=== PATIENT | male | born 1950 | race Two or more races ===

== ENCOUNTER 2017-02-16 15:58 | Emergency (ER) | payer OTHER, MEDICAID ==
[2017-02-16 16:12] VITALS: BP 131/89; PULSE 77; RESP 16; O2SAT 99
--- NOTE | 2017-02-16 16:20 | EDPHY ---
H & P Smoking Status: Former smoker Time Seen by Provider: 02/16/17 16:03 HPI/ROS: CHIEF COMPLAINT: Sent for abnormal chest x-ray HISTORY OF PRESENT ILLNESS: 66-year-old male presents to the emergency department by ambulance with an abnormal chest x-ray. The patient has been residing at [facility] for the last 5 months. He has been recovering from congestive heart failure. He is on continuous oxygen. He states "I was just sitting there watching TV and they did an x-ray and now I am here." Patient is a chronic smoker. He he states he has a chronic cough although denies hemoptysis. Denies any change in his cough. No fevers or chills. Specifically no night sweats. No recent travel. No known ill contacts. He denies new shortness of breath. He states that he does have umbilical hernia that he has had for the last several months and he is requesting to see a surgeon about this. No vomiting. No post-tussive vomiting. REVIEW OF SYSTEMS: Constitutional: No fever, no chills. Eyes: No double or blurry vision. ENT: No sore throat. Respiratory: As above. no shortness of breath. Cardiac: No chest pain. Gastrointestinal: No abdominal pain, vomiting or diarrhea. Genitourinary: No dysuria. Musculoskeletal: No neck or back pain. Skin: No rashes. Neurological: No headache. (Dori Currie) Past Medical/Surgical History: Myocardial infarction, implantable defibrillator, congestive heart failure August of 2016, umbilical hernia, hypertension, atrial fibrillation, anemia, anxiety, insomnia (Dori Currie) Social History: Currently residing at [facility] for the last 5 months (Dori Currie) Physical Exam: General Appearance: Alert, no distress. 97% on 2 L of nasal cannula oxygen. No respiratory distress. No cough. Eyes: Pupils equal and round. Extraocular motions are all intact. ENT: Mouth: Mucous membranes moist. Respiratory: No wheezing, rhonchi, or rales, lungs are clear to auscultation. Cardiovascular: Regular rate and rhythm. Gastrointestinal: Abdomen is soft and nontender, no masses, no rebound or guarding, bowel sounds normal. Umbilical hernia present that is easily compressible. No signs of incarcerated hernia. Neurological: Alert and oriented x 3, cranial nerves II through XII grossly intact Skin: Warm and dry, no rashes. Musculoskeletal: Nontender to palpate along the cervical, thoracic or lumbar spine. Neck is supple. Extremities: Full range of motion and no peripheral edema. Psychiatric: Patient is oriented X 3, there is no agitation. (Dori Currie) Constitutional: Initial Vital Signs Heart Rate 77 02/16/17 16:08 Respiratory Rate 16 02/16/17 16:08 Blood Pressure 131/89 H 02/16/17 16:08 O2 Sat (%) 99 02/16/17 16:08 O2 Delivery Mode Room Air Allergies/Adverse Reactions: acetaminophen [From Tylenol] Allergy (Unknown, Verified 08/29/15 14:10) RASH/VOMITING blueberry Allergy (Verified 08/29/15 14:10) lisinopril Allergy (Verified 08/29/15 14:10) Rash raspberry Allergy (Verified 08/29/15 14:10) rivaroxaban [From Xarelto] Allergy (Verified 08/29/15 14:10) Rash Tetanus Vaccines and Toxoid [Tetanus Vaccines & Toxoid] Allergy (Verified 14:10) BLACKBERRY Allergy (Uncoded 08/29/15 14:10) Home Medications: Medication Instructions Recorded Apixaban [Eliquis] 5 mg PO BID 08/09/15 Cyclobenzaprine [Flexeril 10 MG 10 mg PO TID 08/09/15 (*)] Nitroglycerin [Nitrostat 0.4 mg 0.4 mg SL PRN PRN 08/09/15 (*)] Tiotropium Inhaler [Spiriva 18 mcg IH DAILY 08/09/15 Handihaler] Zolpidem Tartrate [Ambien 5MG (*)] 5 mg PO HS PRN 08/09/15 oxyCODONE IR [Oxycodone Ir (*)] 5 mg PO Q6 PRN 08/09/15 Benzonatate [Tessalon Pearles] 100 mg PO TID #90 cap 08/12/15 Carvedilol [Coreg (*)] 6.25 mg PO BIDMEAL #60 tab 08/12/15 Losartan Potassium [Cozaar 25 mg 25 mg PO DAILY@1200 #30 tab 08/12/15 (*)] Spironolactone [Aldactone 25 MG 25 mg PO DAILY #30 tab 08/12/15 (*)] Torsemide [Demadex] 40 mg PO DAILY16 #60 tab 08/12/15 Torsemide [Demadex] 60 mg PO DAILY #90 tab 08/12/15 Baclofen [Baclofen 10 mg (RX)] 10 - 20 mg PO TID PRN #30 tab 08/29/15 Medical Decision Making - Diagnostics Imaging: I viewed and interpreted images myself - Diagnostics Imaging Results: Imaging Impressions Chest X-Ray 02/16/17 16:15 Impression: Stable chest. Underlying interstitial lung disease. Chronic cardiomegaly. Pacemaker/defibrillator, unchanged.. ED Course/Re-evaluation: 66-year-old male presents to the emergency department by ambulance with no complaints. He was found to have an abnormal chest x-ray today done at [facility]. This x-rays not readily available to me and therefore this will be repeated in the emergency department. The patient was told that he had possible "TB" on chest x-ray. Chest x-ray was compared with previous chest x-ray from August of 2016 and was stable. No signs of tuberculosis. I doubt this patient has tuberculosis. Has a chronic cough which she associates with smoking. He had no night sweats. Specifically no hemoptysis. I have discussed this with Kristel, nurse at [facility], who agrees the patient is welcome back [facility]. Patient also has umbilical hernia which is not incarcerated. He requested general surgeon referral. (Dori Currie) Differential Diagnosis: Including but not limited to viral upper respiratory infection or chronic bronchitis, congestive heart failure, tuberculosis, pneumonia (Dori Currie) Departure - Departure Disposition: Home, Routine, Self-Care Clinical Impression: Chronic cough Umbilical hernia Qualifiers: Obstruction and gangrene presence: without obstruction or gangrene Qualified Code(s): K42.9 - Umbilical hernia without obstruction or gangrene Condition: Good Instructions: Umbilical Hernia (ED), Chronic Cough (ED) Additional Instructions: You have no evidence of tuberculosis on chest xray. Your Chest Xray is stable and unchanged from 08/28. Referrals: Natalie Wilson MD [Medical Doctor] - 2-3 days, call for appt. (General surgeon on-call)
== END 2017-02-16 18:12 | disposition home or self-care (01) ==
LOC: EDUNIT#
DX: R05 Cough (principal); K42.9 Umbilical hernia without obstruction or gangrene; I25.2 Old myocardial infarction; I11.0 Hypertensive heart disease with heart failure; I50.9 Heart failure, unspecified; Z87.891 Personal history of nicotine dependence

== ENCOUNTER 2017-03-15 07:30 | Day surgery (SDC) | payer OTHER, MEDICAID ==
[2017-03-15] MEDS ORDERED: NS 1,000 ML IV ONE (07:33)
[2017-03-15] MEDS ORDERED: ceFAZolin 2 GM/DEXTROSE 100 ML IV ONE (07:33)
[2017-03-15] MEDS ORDERED: DIAZEPAM 5 MG TAB PO ONE (07:33)
[2017-03-15] MEDS ORDERED: diphenhydrAMINE 25 MG CAP PO ONE (07:33)
[2017-03-15] MEDS ORDERED: BACITRACIN IRRIGATION/NS 50,000 UNITS/1,000 ML BTL IRR ONE (07:33)
--- NOTE | 2017-03-15 08:14 | CPEKG ---
Heart Rate: 79 RR Interval: 759 P-R Interval: 112 QRSD Interval: 212 QT Interval: 472 QTC Interval: 542 P [place]: 0 QRS [place]: 0 T Wave [place]: 118 EKG Severity - ABNORMAL ECG - EKG Impression: ATRIAL TACHYCARDIA WITH 2:1 VENTRICULAR PACING. V PACING APPEARS TO BE EKG Impression: PSEUDOFUSION Electronically Signed By: Wilberto Reyes 15-Mar-2017 19:00:35
[2017-03-15 08:30] LABS: % IMMATURE GRANULYOCYTES 0.3 % (0.0-1.1); ABSOLUTE IMMATURE GRANULOCYTES 0.03 10^3/uL (0.00-0.10); ADD DIFF? NO; ADD MORPH? NO; ADD SCAN? NO; ATYPICAL LYMPHOCYTE FLAG 20 (0-99); FRAGMENT RBC FLAG 0 (0-99); HEMATOCRIT 51.6 % (40.0-51.0); HEMOGLOBIN 17.2 g/dL (13.7-17.5); LEFT SHIFT FLG 0 (0-99); LIPEMIA HEMOLYSIS FLAG 80 (0-99); MEAN CELL HEMOGLOBIN 31.4 pg (27.9-34.1); MEAN CELL HEMOGLOBIN CONCENTR. 33.3 g/dL (32.4-36.7); MEAN CELL VOLUME 94.3 fL (81.5-99.8); MEAN PLATELET VOLUME 10.4 fL (8.7-11.7); PLATELET CLUMPS FLAG 10 (0-99); PLATELET COUNT 185 10^3/uL (150-400); RED BLOOD CELL COUNT 5.47 10^6/uL (4.40-6.38); RED CELL DISTRIBUTION WIDTH 15.6 % (11.5-15.2)
[2017-03-15 08:43] LABS: INR 1.12 (0.83-1.16); PROTIME(PATIENT) 14.3 SEC (12.0-15.0)
[2017-03-15 08:47] LABS: ANION GAP 11 mEq/L (8-16); CALCIUM 9.4 mg/dL (8.5-10.4); CARBON DIOXIDE 24 mEq/l (22-31); CHLORIDE 107 mEq/L (97-110); GLOMERULAR FILTRATION RATE > 60; GLUCOSE 84 mg/dL (70-100); POTASSIUM 4.1 mEq/L (3.5-5.2); SODIUM 142 mEq/L (134-144)
--- NOTE | 2017-03-15 08:55 | PDGENHP ---
History and Physical History and Physical: No changes to patient status. Limited echocardiogram was performed to have some idea on heart function (this was to have been performed some time ago, but the patient had not been able to get in to have procedure completed). Echocardiogram with LVEF at 10-15% (about double what was noted with the last echo) Patient is not taking any medications.
[2017-03-15] MEDS ORDERED: PROPOFOL 200 MG/20 ML VIAL ONE (09:19)
[2017-03-15] MEDS ORDERED: KETAMINE 100 MG/10 ML SYR ONE (09:21)
[2017-03-15] MEDS ORDERED: DEXMEDETOMIDINE HCL 400 MCG in NS 100 ML IV SCH (09:30)
--- NOTE | 2017-03-15 09:37 | PDANEPAE ---
ANE History of Present Illness h/o ischemic cardiomyopathy requriing ICD presents for generator change. noncompliant with medications; last known EF 8% ANE Past Medical History - Cardiovascular History Hx Hypertension: Yes Hx Arrhythmias: Yes Hx Coronary Artery / Peripheral Vascular Disease: Yes Hx CHF / Valvular Disease: Yes Cardiovascular History Comment: VT X2. STENTS X2. AFIB. DEFIBRILLATOR - Pulmonary History Hx COPD: Yes Hx Asthma/Reactive Airway Disease: No Hx Recent Upper Respiratory Infection: No Hx Oxygen in Use at Home: Yes Hx Sleep Apnea: Yes Pulmonary History Comment: TASH IS [employer] - Neurologic History Hx Cerebrovascular Accident: No Hx Seizures: No Hx Dementia: No - Endocrine History Hx Diabetes: No - Renal History Hx Renal Disorders: No Renal History Comment: DIFFICULTY URINATING CURRENTLY - Liver History Hx Hepatic Disorders: No - Neurological & Psychiatric Hx Hx Neurological and Psychiatric Disorders: No - Cancer History Hx Cancer: No - Congenital Disorder History Hx Congenital Disorders: No - GI History Hx Gastrointestinal Disorders: No - Other Health History Other Health History: NONE - Chronic Pain History Chronic Pain: Yes (FROM COUGHING) - Surgical History Prior Surgeries: HERNIA REPAIR. BILATERAL HIP REPLACEMENTS. CATARACTS BILATERAL 2012. VT X2. STENTS X2. 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: [employer] Date Pacemaker Last Checked: 05/22/14 ANE Patient History - Allergies Allergies/Adverse Reactions: acetaminophen [From Tylenol] Allergy (Unknown, Verified 08/29/15 14:10) RASH/VOMITING blueberry Allergy (Verified 08/29/15 14:10) cefuroxime Allergy (Verified 03/15/17 08:54) doxycycline Allergy (Verified 03/15/17 08:54) lisinopril Allergy (Verified 08/29/15 14:10) Rash raspberry Allergy (Verified 08/29/15 14:10) Tetanus Vaccines and Toxoid [Tetanus Vaccines & Toxoid] Allergy (Verified 14:10) tramadol Allergy (Verified 03/15/17 08:54) BLACKBERRY Allergy (Uncoded 08/29/15 14:10) - Home Medications Home medications: home medication list seen and reviewed Home Medications: Nitroglycerin [Nitrostat 0.4 mg (*)] 0.4 mg SL PRN PRN 08/09/15 [Last Taken Unknown] Albuterol [Proventil Inhaler HFA (*)] 2 puffs IH Q6HRS PRN 03/15/17 [Last Taken Unknown] Docusate Sodium [Colace 100 MG (*)] 100 mg PO Q8HRS PRN 03/15/17 [Last Taken Unknown] Furosemide [Lasix 40 MG (*)] 40 mg PO BID@08,13 03/15/17 [Last Taken 03/12/17 13 :00] Ibuprofen [Motrin (*)] 600 mg PO Q6HRS PRN 03/15/17 [Last Taken 03/06/17 10:14] Losartan Potassium [Cozaar 25 mg (*)] 25 mg PO DAILY 03/15/17 [Last Taken ] Spironolactone [Aldactone 25 MG (*)] 25 mg PO DAILY@17 03/15/17 [Last Taken ] tiZANidine HCL [Zanaflex 2MG (*)] 2 mg PO Q6HRS PRN 03/15/17 [Last Taken ] traZODone [traZODONE 50MG (*)] 50 mg PO HS PRN 03/15/17 [Last Taken 03/06/17] - Anes Hx Anes Hx: no prior problems - Smoking Hx Smoking Status: Former smoker - Family Anes Hx Family Hx Anesthesia Complications: NONE ANE Labs/Vital Signs - Labs Result Diagrams: 03/15/17 08:15 03/15/17 08:15 - Vital Signs Height: 163 cm Weight: 61.2 kg ANE Physical Exam - Airway Neck exam: FROM Mallampati Score: Class 2 Mouth exam: dentures - Pulmonary Pulmonary: no respiratory distress - Cardiovascular Cardiovascular: regular rate and rhythym - ASA Status ASA Status: IV ANE Anesthesia Plan Anesthesia Plan: GA with mask
[2017-03-15] MEDS ORDERED: LIDOCAINE 1% 300 MG/30 ML SDV ONE (09:54)
[2017-03-15] MEDS ORDERED: LIDO/EPI 1% **for epidural** 30 ML SDV ONE (09:54)
[2017-03-15] MEDS ORDERED: BUPIVACAINE 0.5% 30 ML SDV ONE (09:54)
--- NOTE | 2017-03-15 11:08 | SUROPNOTE ---
[facility] Operative Report - Surgery PROCEDURE: GENERATOR CHANGE INDICATION: DORCAS ACHIEVED PROCEDURE DETAILS: After consent was obtained, we opted to have anesthesia assistance for sedation given the patient's LVEF and COPD history. Limited echocardiogram was performed for assessment of LVEF prior to procedure (we had been attempting to get his arranged in the outpatient setting, but transportation was very difficult for the patient. Reassessment by echo with LVEF at 10-15%. Patient was placed on table in usual sterile fashion. Generous lidocaine was used for local to the left subclavian region. An incision (#12 blade) was made over the old pocket, and Bovie was used for depth and width. The old generator was explanted from the pocket, and the leads were one by one interrogated. Implanted device: M#: [id number] ... Itrevia 7 HF-T DF-1 S#: [id number] DDD LR: 80 UR: 130 MSR: 160 AVdelay : 150 RA: 2.0 V @ 0.4 ms with 0.4 mV and 300 ms refract RV 2.4 V @ 0.4 ms with 0.8 mV and 250 ms refract LV: 2.0 @ 0.4 ms with 1.6 mV and 250 ms refract DFT settings: VF detect: >222 VF therapy 245 X1 and 40J X7 VT detect: >167 VT therapy ANDREA X3 24J X1 40J X7 RV lead was linox Smart SD 60/16 S#: [id number] LV lead Corox OTW-S 75-BP S#: [id number] RA lead 4076-45 S#: [id number] Pocket was flushed after old generator was explanted (Lumax 540 HF-T S#: [id number]) New generator was implanted without difficulty, and pocket was closed with 4-0, 3-0, and 2-0 Haemostasis was noted pre new generator implant No complications were appreciated. Patient tolerated the procedure well
[2017-03-15] MEDS ORDERED: PROMETHAZINE HCL 25 MG/ML INJ IVP PRN (11:23)
[2017-03-15] MEDS ORDERED: NALOXONE HCL 0.4 MG/ML INJ IVP PRN (11:23)
[2017-03-15] MEDS ORDERED: fentaNYL 100 MCG/2 ML INJ IVP PRN (11:23)
[2017-03-15] MEDS ORDERED: HYDROmorphONE/DILAUDID 1 MG/ML INJ IVP PRN (11:23)
[2017-03-15] MEDS ORDERED: ALBUTEROL 3 ML DEYVIAL IH PRN (11:23)
[2017-03-15] MEDS ORDERED: ONDANSETRON 4 MG/2 ML VIAL IVP PRN (11:23)
[2017-03-15] MEDS ORDERED: LR 500 ML IV PRN (11:23)
--- NOTE | 2017-03-15 11:23 | POSTANESTH ---
Post Anesthetic Evaluation Cardiovascular Status: Normal, Stable Respiratory Status: Normal, Stable Level of Consciousness/Mental Status: Can Participate in Eval Pain Control: Adequate, Prn Tx Ordered Nausea/Vomiting Control: Adequate, Prn Tx Ordered Complications Possibly Related to Anesthesia: None Noted
--- NOTE | 2017-03-15 15:19 | ECHO ---
[email or web address] [id number] Main: [phone] Fax: Transthoracic Echocardiogram Name: JOSE RAUL TURNER MR#: [id number] Study Date: 03/15/2017 Study Time: 08:39 AM Date of : 1950 Age: 66 year(s) Height: ( ) Weight: ( ) BSA: Gender: Male Examination: Limited Echo Indication: Limited echo to eval LV function Image Quality: Contrast: Requested by: Cornelius Hussein BP: / Heart Rate: Rhythm: Pacemaker rhythm Indication: Limited echo to eval LV function Procedure Staff Animal Husbandry Manager: Becca Ley Physician: Kt Almanzar Requesting Provider: Measurements: Chambers Valvular Assessment AV/MV Valvular Assessment TV/PV Normal Normal Normal Name Value Range Name Value Range Name Value Range LVDd (2D): 6.4 cm (4.2 cm-5.9 TR Vmax: 2.16 mm/s ( - ) cm) TR PGmax: 19 mmHg ( - ) EF Range: 10-15 % syst. PAP: 29 mmHg ( - ) Continued Measurements: Valvular Assessment TV/PV Name Value CVP (est.): 10 mmHg Findings: Left Ventricle: Moderately to severely dilated left ventricle. Severe global hypokinesis. Akinesis of the posterolateral wall. Severely reduced systolic LV function. The ejection fraction is estimated to be 10-15 %. Regional wall motion abnormality noted. (No Signature Object) Patient: JOSE RAUL TURNER Study Date: 03/15/2017 Page 1 of 1 08:39 AM [id number]
[2017-03-15 15:34] VITALS: BP 101/67; RESP 18; O2SAT 95
== END 2017-03-15 15:30 | disposition home or self-care (01) ==
LOC: FCATH 07:30
PROVIDERS: ATTEND Internal Medicine Cardiovascular Disease
PROC: 0JH608Z Insertion of Defibrillator Generator into Chest Subcutaneous Tissue and Fascia, Open Approach (ICD-10-PCS; principal; 2017-03-15)
DX: Z45.018 Encounter for adjustment and management of other part of cardiac pacemaker (principal); I42.9 Cardiomyopathy, unspecified; J44.9 Chronic obstructive pulmonary disease, unspecified; I10 Essential (primary) hypertension; I25.10 Atherosclerotic heart disease of native coronary artery without angina pectoris; E78.5 Hyperlipidemia, unspecified; Z95.5 Presence of coronary angioplasty implant and graft
CPT/HCPCS: C1882; J0690; J2704

== ENCOUNTER 2017-07-02 12:42 | Observation (INO) | payer OTHER, MEDICAID ==
--- NOTE | 2017-07-02 12:53 | CPEKG ---
Heart Rate: 79 RR Interval: 759 P-R Interval: 180 QRSD Interval: 132 QT Interval: 436 QTC Interval: 500 P [place]: -38 QRS [place]: -82 T Wave [place]: 82 EKG Severity - ABNORMAL ECG - EKG Impression: ATRIAL-SENSED VENTRICULAR-PACED RHYTHM Electronically Signed By: Wilberto Reyes 05-Jul-2017 06:08:12
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
[2017-07-02 13:53] LABS: PLATELET COUNT 184 10^3/uL (150-400)
[2017-07-02] MEDS ORDERED: IOPAMIDOL (ISOVUE 370) 100 ML BTL IV ONE (14:14)
[2017-07-02] MEDS ORDERED: ONDANSETRON 4 MG/2 ML VIAL IVP PRN (16:45)
[2017-07-02] MEDS ORDERED: ACETAMINOPHEN 325 MG TAB PO PRN (16:45)
[2017-07-02] MEDS ORDERED: ZOLPIDEM TARTRATE 5 MG TAB PO PRN (16:45)
--- NOTE | 2017-07-02 16:48 | HOSPPROG ---
Hospitalist Progress Note Objective: Vital Signs Temp Pulse Resp BP Pulse Ox 36.9 C 65 17 102/69 95 07/02/17 14:00 07/02/17 14:00 07/02/17 14:00 07/02/17 14:00 07/02/17 14:00 ICD10 Worksheet Patient Problems: Problems Problem Status Onset CAD (coronary artery disease) Acute Ischemic cardiomyopathy Acute Atrial fib/flutter, transient Acute Chronic Disease [facility]Transitional Care Acute Benign localized hyperplasia of prostate with urinary retention Acute Umbilical hernia Acute Chronic cough Acute
--- NOTE | 2017-07-02 16:54 | PDGENHP ---
History and Physical History and Physical: CC: Chest pain and stress HISTORY: This patient lives at [facility] and says that he called the paramedics to come to the ER as for the last 2 days his roommate there has been yelling at him and calling him names and causing him quite a bit of stress make him feel very uncomfortable. This is resulted in loss of appetite with decreased eating and with some episodes of a very sharp very focal pain in the mid sternal area that is not pleuritic necessarily but was associated with some shortness of breath. This type of episode has occurred 3 times over the last 36 hr. He got aspirin on the way here and is being given oxygen here and says that his pain and dyspnea are completely resolved at this point. There has been no nausea, no leg pain or swelling, no palpitations, no orthopnea. He does not recall previous episodes of a pain like he is having today. The patient does have a history of coronary disease with stents as well as a pacemaker. He recalls very clearly that his angina symptom with his previous coronary disease was a left-sided diffuse chest discomfort that felt like someone hit him with a 2 x 4 and was a deep ache, very different than today's focal sharp pain in the mid sternum. 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 I have reviewed the list and ordered appropriate medicines. PHYSICAL EXAMINATION: Vital Signs: Normal blood pressure pulse respirations and temperature is, initial oxygen saturation 87% is up well with 2 L nasal cannula, baseline unknown to me Furnace Stock Inspector: Sinus rhythm with ventricular pacing, normal rate Examination: General: alert, oriented, good mentation, relaxed Skin: warm, dry, good color, no rash HEENT: normal Neck: no mass or jvd Resps: relaxed Lungs: clear breath sounds Heart: regular, no murmur Abdomen: soft, nondistended, nontender, +BS, no mass Upper Extremities: normal Lower Extremities: no edema, warm No Bleeding or bruising Neurologic: normal speech/language, normal community dietitian, no focal weakness IV site: looks normal LABORATORY DATA: Normal troponin BUN slightly high at 31 with normal creatinine, normal electrolytes BNP 2500 with numbers as high as the 6000+ in the [place] [address] RADIOLOGY STUDIES: Chest x-ray two views done in the ER and I compared the images from this study to the images from 3 previous studies over the last few years. This study as well as all the other studies shows diffuse interstitial abnormalities throughout both lungs. There is significant enlargement of the heart without obvious new pulmonary edema and his pacemaker is present with leads in appropriate position. There is also evidence of obstructive lung disease with hyperexpansion, but no effusions or masses or acute appearing infiltrates 12 LEAD EKG: Sinus rhythm with ventricular pacing and typical ventricular paced QRS complexes , nothing that appears as acutely ischemic or injury pattern ASSESSMENT: # chest pain -this is a sharp substernal pain and is brought on by stress of arguments. Is quite different than his previous anginal pain and there is little to suggest a cardiac etiology at this time. Nonetheless given his history of stents will do a rule out protocol. Will need to get a D-dimer as he had some dyspnea to assess for possible PE. Would not do stress testing or angiography unless he has more specific indication to do so. His BNP is elevated here but is remarkably lower than it has been here on past admissions and he does not have any peripheral edema # stressful situation at his nursing facility where he resides -I have asked our trimming caser to contact the staff at [facility] to look into some type of intervention to relieve this stroke so the patient does not end up coming back here repeatedly # history of coronary artery disease and stents, and the pacer with currently paced rhythm # chronic hypoxemic respiratory failure appears stable at this time -history and x-rays show COPD and chronic interstitial lung disease, x-rays unchanged from the past # chronic paroxysmal atrial fibrillation, on chronic anticoagulation stable at this time PLANS: -observe overnight for stability of his chest symptoms and cardiac rhythm or signs of any heart failure -will check a D-dimer as he does have a sharp chest pain and some dyspnea that is currently resolved with oxygen -if D-dimer is positive will do order imaging to rule out PE -will check to see when he last had any stress testing or angiography. At this point this is really very atypical chest discomfort and very different than his previous angina symptoms and I am not feeling like stress testing or angiography would be very helpful unless he presents with more typical symptoms , heart failure, or some other instability or troponin abnormalities to suggest that it is necessary -will continue his usual medications without change at this time I have reviewed the patient's case in detail with sourav Woods, of the ER I have reviewed the patient's past medical records as part of this assessment, including previous hospital admission records, clinic records, chest x-ray images
[2017-07-02] MEDS ORDERED: NON-FORMULARY NEW DRUG (Albuterol 2 PUFFS) IH PRN (17:07)
[2017-07-02] MEDS ORDERED: CETIRIZINE 10 MG TAB PO PRN (17:07)
[2017-07-02] MEDS ORDERED: IBUPROFEN 600 MG TAB PO PRN (17:07)
[2017-07-02] MEDS ORDERED: DOCUSATE SODIUM 100 MG CAP PO PRN (17:07)
[2017-07-02] MEDS ORDERED: TIZANIDINE HCL 2 MG PO PRN (17:07)
[2017-07-02] MEDS ORDERED: BISMUTH SUBSALICYLATE 524 MG/30 ML UDL PO PRN (17:07)
[2017-07-02] MEDS ORDERED: NITROGLYCERIN 0.4 MG BTL SL PRN (17:07)
[2017-07-02] MEDS ORDERED: MELATONIN 3 MG TAB PO PRN (17:07)
[2017-07-02] MEDS ORDERED: ALBUTEROL 60 PUFFS/8 GM MDI IH PRN (18:16)
[2017-07-02] MEDS ORDERED: tiZANidine HCL 2 MG TAB PO PRN (18:18)
[2017-07-02] MEDS ORDERED: NICOTINE 21 MG/24 HR PATCH TD ONE (19:36)
[2017-07-02] MEDS: APIXABAN 5 MG TAB PO SCH (20:03)
[2017-07-02] MEDS: FLUTICASONE/SALMETER 250/50MCG DISKUS IH SCH (21:05)
[2017-07-02] MEDS ORDERED: NS 1,000 ML IV SCH (23:45)
[2017-07-03] MEDS: FLUTICASONE/SALMETER 250/50MCG DISKUS IH SCH (08:47)
[2017-07-03] MEDS ORDERED: FUROSEMIDE 40 MG TAB PO SCH (09:00)
[2017-07-03] MEDS ORDERED: SPIRONOLACTONE 25 MG TAB PO SCH (09:00)
[2017-07-03] MEDS ORDERED: TIOTROPIUM INHALER 18 MCG/DOSE 5 DOSE/MDI IH SCH (09:00)
[2017-07-03] MEDS ORDERED: LOSARTAN POTASSIUM 25 MG TAB PO SCH (09:00)
[2017-07-03] MEDS ORDERED: ASPIRIN EC 81 MG TAB PO SCH (09:00)
[2017-07-03] MEDS: APIXABAN 5 MG TAB PO SCH (09:42)
--- NOTE | 2017-07-03 10:14 | ASMTCMCOM ---
CM Note CM Note Notes: 07/03/2017 Case Management Note Met w/pt. RECINOS signed, pt had no questions. Pt lives at [facility] and plans to return when medically stable. Case Management d/c poc: return to [facility]. Case Management to follow. Date Signed: 07/03/2017 10:14 AM Electronically Signed By:Dimple Hayes RN
--- NOTE | 2017-07-03 12:22 | PDIAF ---
- Diagnosis Diagnosis: Chest pain of non-cardiac origin Code Status: Full Code - Medication Management Discharge Medications: Medications to Continue on Transfer Albuterol [Ventolin Hfa Inhaler] 2 puffs IH Q6 PRN 07/02/17 [Last Taken Unknown] Apixaban [Eliquis] 5 mg PO BID 07/02/17 [Last Taken 07/02/17] Aspirin EC [Aspirin EC 81 mg (*)] 81 mg PO DAILY 07/02/17 [Last Taken 07/02/17] Bismuth Subsalicylate [KAOPECTATE] 15 - 30 ml PO Q6 PRN 07/02/17 [Last Taken Unknown] Cetirizine [ZyrTEC 10 mg (*)] 10 mg PO DAILY PRN 07/02/17 [Last Taken Unknown] Docusate Sodium [Colace 100 MG (*)] 100 mg PO Q8 PRN 07/02/17 [Last Taken Unknown] Fluticasone/Salmeter 250/50Mcg [Advair 250/50 (*)] 1 puffs IH BID 07/02/17 [ Last Taken 07/02/17] Furosemide [Lasix 40 MG (*)] 40 mg PO BIDDIUR 07/02/17 [Last Taken 07/02/17] Ibuprofen [Motrin (*)] 600 mg PO Q6 PRN 07/02/17 [Last Taken Unknown] Losartan Potassium [Cozaar 25 mg (*)] 25 mg PO DAILY 07/02/17 [Last Taken ] Melatonin [Melatonin 3 MG (*)] 3 mg PO HS PRN 07/02/17 [Last Taken Unknown] Nitroglycerin [Nitrostat 0.4 mg (*)] 0.4 mg SL Q5M PRN 07/02/17 [Last Taken Unknown] Spironolactone [Aldactone 25 MG (*)] 25 mg PO DAILY 07/02/17 [Last Taken ] Tiotropium Inhaler [Spiriva Inhaler (RX)] 1 puffs IH DAILY 07/02/17 [Last Taken 07/02/17] Tizanidine HCl 2 mg PO Q8 PRN 07/02/17 [Last Taken Unknown] Discharge Medications: Refer to the Discharge Home Medication list for PRN reason. PICC Care - Routine: N/A - Orders Isolation Type: None Diet Recommendation: cardiac -low fat low salt Diet Texture: Regular Texture Diet Weigh Patient: weekly (Keep follow up with Dr. Renteria as previously scheduled. I don't think any immediate follow up necessary at this time.) - Follow Up Care Current Providers and Referrals: SALOMON RENTERIA [Other]
[2017-07-03 12:27] VITALS: BP 104/64; PULSE 121; RESP 18; TEMP 98.2; O2SAT 93
--- NOTE | 2017-07-03 14:00 | GDS ---
[f rep st] DISCHARGE SUMMARY PRIMARY CARE PROVIDER: Dr. Osiris Dubois. DISCHARGE DIAGNOSIS: Noncardiac chest pain. HISTORY OF PRESENT ILLNESS: The patient is a 66-year-old male, with a past medical history of ruiz ry artery disease status post PCI, as well as ischemic cardiomyopathy with an ejection fraction of 20 -25%, who is also an active smoker, who presented to [facility] from [facility] complaining of chest pains. His workup here in the hospital was negative with his tropo nins all within normal limits. He did not have any recurrent chest pains while he was here in the spital. A D-dimer was also checked which was normal at 0.38. A BNP was elevated at 2550 but much lo wer than his baseline readings from the past. Clinically, he appeared euvolemic as well. We suspect that some of his symptoms may be related to a situation with his roommate. They apparently have not gotten along very well, and it seems that the arguing between them may have precipitated some of his chest symptoms. I talked with Case Management today, and they have been in touch with his skilled n ursing facility, [facility], and they have apparently made arrangements where he will not have the same roommate in returning back to their facility. As such, we will be discharging him today. In s hort, really no medication changes were made during this hospitalization. EXAM: VITAL SIGNS: On day of discharge, temperature 36.4, blood pressure 126/78, heart rate 57, res piratory rate of 18, satting 93% on 2 L nasal cannula. NOTABLE STUDIES: 1. Sodium 143, potassium 4.0, chloride 107, bicarb 24, BUN is 29, creatinine 1.0, glucose is 84, AST 24, ALT 31, troponin 0.017 to 0.019 to 0.017. BNP 2550. 2. Chest x-ray: Stable borderline compensated CHF and diffuse interstitial lung disease. 3. ECG: Paced rhythm. DISCHARGE MEDICATIONS: In short, no medication adjustments were made during this hospitalization. 1. Spironolactone 25 mg daily. 2. Spiriva 1 puff daily. 3. Losartan 25 mg daily. 4. Lasix 40 mg twice a day. 5. Eliquis 5 mg twice a day. 6. Aspirin 81 mg daily. 7. Advair 200/50 one puff twice a day. As needed medications include: Zyrtec, tizanidine, nitroglycerin, melatonin, Kaopectate, ibuprofen, Colace, albuterol. DISCHARGE INSTRUCTIONS: Patient will be transferred back to [facility]. He will have a different roommate as he had compared to coming into the hospital. At this point in time, considering the neg ative workup, I do not feel a need for any immediate followup with Dr. Dubois, but I would recommend laxmi cam follow up as previously scheduled or planned for. 35 minutes of time dedicated to discharge efforts. Copy requested to: Osiris Mccoy Dr. /[id number]/MODL
--- NOTE | 2017-07-03 17:30 | ASDISCHSUM ---
Discharge Information Plan Status:SNF Medically Cleared to Leave:07/02/2017 Discharge Date:07/03/2017 02:35 PM CM D/C Disposition:Prison Facility ADT D/C Disposition:Prison Facility Projected Discharge Date:07/03/2017 11:00 AM Transportation at D/C:Wheelchair Van Discharge Delay Reason: Follow-Up Date:07/03/2017 11:00 AM Discharge Slot: Final Diagnosis: Placement Information Referral Type:*Detention/SNF Referral ID:[id number] Provider Name: Address 1: Phone Number: Address 2: Fax Number: City: [facility] Factors: State: Patient Contact Information Contact Name:ROULA Relationship:Other Address: Work Phone: [facility] Alternate Phone: [facility] Code:[place] Email: Financial Information Financial Class: Primary Plan Desc:MEDICARE OUTPATIENT Primary Plan Number:[id number] Secondary Plan Desc:MED[place]ID [place] Secondary Plan Number:[id number] Assessment Information [facility] CM Progress Note CM Note CM Note Notes: 07/03/2017 Case Management Note Met w/pt. GRISEL signed, pt had no questions. Pt lives at [facility] and plans to return when medically stable. Case Management d/c poc: return to [facility]. Case Management to follow. Date Signed: 07/03/2017 10:14 AM Electronically Signed By:Dimple Hayes RN Case Management Discharge Plan Note Case Management Discharge Discharge Order Complete? Answers: Yes Patient to Obtain Answers: Other Notes: [facility] Medications Transportation Arranged Answers: Other Notes: [facility] arranged and paid for w/c transport Case Management Transport Answers: Yes Form Complete Faxed Final Orders Answers: Yes Agency/Facility Transfer Answers: Yes Report Printed & Faxed to Receiving Agency Discharge Comments Notes: 07/03/2017 Case Management Note Shannan arranged transportation. Printed hard copies of all records and d/c paperwork. Sent with patient to [facility]. RN called report. Date Signed: 07/03/2017 05:29 PM Electronically Signed By:Dimple Hayes RN Intervention Information Intervention Type:*RECINOS-Signed Date of Service:07/03/2017 10:12 AM Patient Type:Observation Staff Member:MOLINA Hayes, Dimple Hours:0.25 Discipline: Severity: Comment:
== END 2017-07-03 14:35 ==
LOC: EDUNIT# → F2W 17:45
PROVIDERS: ADMIT Internal Medicine; ATTEND Internal Medicine
DX: R07.89 Other chest pain (principal); I25.10 Atherosclerotic heart disease of native coronary artery without angina pectoris; I25.5 Ischemic cardiomyopathy; I25.2 Old myocardial infarction; I48.0 Paroxysmal atrial fibrillation; J96.11 Chronic respiratory failure with hypoxia; J44.9 Chronic obstructive pulmonary disease, unspecified; J84.9 Interstitial pulmonary disease, unspecified; Z95.810 Presence of automatic (implantable) cardiac defibrillator; Z95.5 Presence of coronary angioplasty implant and graft; Z79.01 Long term (current) use of anticoagulants; Z79.82 Long term (current) use of aspirin
CPT/HCPCS: 71046; 93005; G0378; Q9967

== ENCOUNTER 2017-11-19 14:12 | Emergency (ER) | payer OTHER, MEDICAID ==
--- NOTE | 2017-11-19 14:38 | EDPHY ---
H & P Stated Complaint: Umbilical hernia - Personal History Current Tetanus/Diphtheria Vaccine: Yes Tetanus Vaccine Date: 2010 - Medical/Surgical History Hx Asthma: No Hx Chronic Respiratory Disease: Yes Hx Diabetes: No Hx Cardiac Disease: Yes Hx Renal Disease: No Hx Cirrhosis: No Hx Alcoholism: No Hx HIV/AIDS: No Hx Splenectomy or Spleen Trauma: No Other PMH: MIX2, stentsX2, afib, htn, AICD, home O2, COPD, Vasectomy, hernia repair, bilat hip replacements, cardiomyopathy. knee replacement - Social History Smoking Status: Current every day smoker Time Seen by Provider: 11/19/17 14:29 HPI/ROS: CHIEF COMPLAINT: "My hernia hurts" HISTORY OF PRESENT ILLNESS: 67-year-old male lives at [facility] arrives via ambulance complaining of "hernia pain". He has a multiyear history of umbilical hernia. He has never attempted to reduce this himself. He ate breakfast this morning consisting of eggs, rodriguez and toast with no sequela, no nausea or vomiting, no pain. He has had a bowel movement this morning which is normal. Passing gas as normal. He has never had surgical consultation. With REVIEW OF SYSTEMS: A ten point review of systems was performed and is negative with the exception of the items mentioned in the HPI PAST MEDICAL & SURGICAL HISTORY: No pertinent medical or surgical history SOCIAL HISTORY:Nonsmoker lives at [facility] PHYSICAL EXAM (Prior to examination, patient consented to physical exam, hands were washed and my usual and customary physical exam procedures followed) 1) GENERAL: Well-developed, well-nourished, alert and oriented. Appears nontoxic, watching TV sitting upright 2) HEAD: Normocephalic, atraumatic 3) HEENT: Pupils equal, round, reactive to light bilaterally. Sclera anicteric. 4) NECK: Full range of motion, no meningeal signs. 5) LUNGS: Clear auscultation bilaterally, no wheezes, no rhonchi, no retractions. 6) HEART: Regular rate and rhythm, no murmur, no heave, no gallop. 7) ABDOMEN: Umbilical hernia noted which is tender. No overlying skin changes no discoloration. No guarding, no rebound, no focal tenderness, negative McBurney's, negative Bermudez's, negative Rovsing's, negative peritoneal sign, 8) MUSCULOSKELETAL: Moving all extremities, no focal areas of tenderness, no obvious trauma. No peripheral edema or discoloration. 9) BACK: No CVA tenderness, no midline vertebral tenderness, no fluctuance, no step-off, no obvious trauma, no visual or palpable abnormality. 10) SKIN: No rash, no petechiae. 11) Psychiatric: Patient is oriented X 3, there is no agitation. DIFFERENTIAL DIAGNOSIS: In no particular include but limited to tissue necrosis, incarcerated hernia, strangulated hernia (Tanner,Lara Arredondo) Constitutional: Initial Vital Signs Temperature (C) 36.9 C 11/19/17 14:22 Heart Rate 75 11/19/17 14:22 Respiratory Rate 16 11/19/17 14:22 Blood Pressure 129/80 H 11/19/17 14:22 O2 Sat (%) 90 L 11/19/17 14:22 O2 Delivery Mode Room Air O2 (L/minute) 2 Allergies/Adverse Reactions: acetaminophen [From Tylenol] Allergy (Unknown, Verified 08/29/15 14:10) RASH/VOMITING blueberry Allergy (Verified 08/29/15 14:10) cefuroxime Allergy (Verified 03/15/17 08:54) doxycycline Allergy (Verified 03/15/17 08:54) lisinopril Allergy (Verified 08/29/15 14:10) Rash raspberry Allergy (Verified 08/29/15 14:10) Tetanus Vaccines and Toxoid [Tetanus Vaccines & Toxoid] Allergy (Verified 14:10) tramadol Allergy (Verified 03/15/17 08:54) BLACKBERRY Allergy (Uncoded 08/29/15 14:10) Home Medications: Medication Instructions Recorded Albuterol [Ventolin Hfa Inhaler] 2 puffs IH Q6 PRN 07/02/17 Apixaban [Eliquis] 5 mg PO BID 07/02/17 Aspirin EC [Aspirin EC 81 mg (*)] 81 mg PO DAILY 07/02/17 Bismuth Subsalicylate [KAOPECTATE] 15 - 30 ml PO Q6 PRN 07/02/17 Cetirizine [ZyrTEC 10 mg (*)] 10 mg PO DAILY PRN 07/02/17 Docusate Sodium [Colace 100 MG (*)] 100 mg PO Q8 PRN 07/02/17 Fluticasone/Salmeter 250/50Mcg 1 puffs IH BID 07/02/17 [Advair 250/50 (*)] Furosemide [Lasix 40 MG (*)] 40 mg PO BIDDIUR 07/02/17 Ibuprofen [Motrin (*)] 600 mg PO Q6 PRN 07/02/17 Losartan Potassium [Cozaar 25 mg 25 mg PO DAILY 07/02/17 (*)] Melatonin [Melatonin 3 MG (*)] 3 mg PO HS PRN 07/02/17 Nitroglycerin [Nitrostat 0.4 mg 0.4 mg SL Q5M PRN 07/02/17 (*)] Spironolactone [Aldactone 25 MG 25 mg PO DAILY 07/02/17 (*)] Tiotropium Inhaler [Spiriva 1 puffs IH DAILY 07/02/17 Inhaler (RX)] Tizanidine HCl 2 mg PO Q8 PRN 07/02/17 Medical Decision Making Procedures: Procedure: Reduction of umbilical hernia Indications: Umbilical hernia Indications risks benefits discussed with patient. Using my usual and customary technique, placing direct firm pressure on the umbilical hernia was able to easily reduce this. Patient tolerated procedure well. (Lara Hart) ED Course/Re-evaluation: The patient's umbilical hernia was easily reduced by myself in the ER. He has been tolerating oral intake, bowel movements have been normal. At this time I do not think that emergent imaging or surgical consultation is indicated however I have stressed the importance of follow-up with surgery at this has been a multiyear issue for the patient. I spoke with the patient's court appointed power of city attorney/legal guardian Tosha Garcia, phone and she is in agreement with plan for outpatient follow-up, she feels comfortable with him returning to [facility]. Usual and customary abdominal and hernia precautions provided. I saw this patient independently based on established practice protocols. Care of patient under supervision of secondary supervising physician Dr Gunn . (Lara Hart) I did not see this patient while he was in the emergency department. However his care has been discussed with the PA while the patient was in the department. I agree with treatment plan and management (Jim Gunn) Departure - Departure Disposition: Home, Routine, Self-Care Clinical Impression: Umbilical hernia Qualifiers: Obstruction and gangrene presence: without obstruction or gangrene Qualified Code(s): K42.9 - Umbilical hernia without obstruction or gangrene Condition: Good Instructions: Umbilical Hernia (ED) Additional Instructions: Return to the ER if you are unable to push your hernia back in, if you developed vomiting, worsening pain, if you cannot pass gas or any other symptoms that concern you Referrals: Phil Niño MD [Medical Doctor] - As per Instructions
[2017-11-19 16:38] VITALS: BP 129/80
--- NOTE | 2017-11-19 18:00 | ASDISCHSUM ---
Discharge Information Plan Status:SNF Medically Cleared to Leave: Discharge Date:11/19/2017 04:38 PM D/C Disposition:[facility] Facility ADT D/C Disposition:Home, Routine, Self-Care Projected Discharge Date:11/19/2017 04:38 PM Transportation at D/C:Wheelchair Van Discharge Delay Reason: Follow-Up Date:11/19/2017 04:38 PM Discharge Slot: Final Diagnosis: Placement Information Patient Contact Information Contact Name:ROULA Relationship:Other Address: Work Phone: [facility]:[place] Alternate Phone: [facility]/Zip Code:[place] Email: Financial Information Financial Class:Medicare Advantage Plans Primary Plan Desc:[facility] Primary Plan Number:[id number] Secondary Plan Desc:MED[place] Secondary Plan Number:[id number] Assessment Information [facility] Progress Note CM Note CM Note Notes: Pt presented to the ED via EMS for abdominal hernia, which he has had for several years. Pt lives at [facility]. Pt ready to DC back to ; this CM assisted with arranging transportation. This CM contacted but they did not have transport available. This CM called [facility] but they were unavailable for about an hour. Pt did not meet criteria for stretcher transport. This CM contacted pt's guardian, Lowell, and she was going to come pick patient up but had arranged for a wheelchair transport van to pick patient up without alerting CM or ED staff. So pt was transported back to via WC transport van. Lowell arrived to the ED shortly after pt left and is aware pt returned to . This CM attempted to contact ([phone]) to discuss needed communication (re: pt's transport back and also to discuss unnecessary ED visit) and left a voicemail for Neisha, basket hand weaver. CM available for further assistance if needed. Date Signed: 11/19/2017 05:58 PM Electronically Signed By:Mitzy Eddy RN Intervention Information Intervention Type:Transportation Date of Service:11/19/2017 05:58 PM Patient Type:Emergency Room Staff Member:MOLINA Eddy Sharon Hours:0.5 Discipline:Communication Analyst Severity: Comment: Intervention Type:Post Acute Communication Date of Service:11/19/2017 05:58 PM Patient Type:Emergency Room Staff Member:MOLINA Eddy Sharon Hours:0.25 Discipline:Communication Analyst Severity: Comment:
== END 2017-11-19 16:38 | disposition home or self-care (01) ==
LOC: EDUNIT#
DX: K42.9 Umbilical hernia without obstruction or gangrene (principal); J44.9 Chronic obstructive pulmonary disease, unspecified; I10 Essential (primary) hypertension; I25.2 Old myocardial infarction; F17.200 Nicotine dependence, unspecified, uncomplicated; Z79.82 Long term (current) use of aspirin; Z95.5 Presence of coronary angioplasty implant and graft

== ENCOUNTER 2017-12-12 16:54 | Observation (INO) | payer OTHER, MEDICAID ==
--- NOTE | 2017-12-12 17:09 | EDPHY ---
HPI/HX/ROS/PE/MDM Narrative: CHIEF COMPLAINT: Umbilical hernia pain HPI: The patient is an anticoagulated (Eliquis) 67 y/o male with a multi year history of hernia pain and repair arriving via EMS complaining of umbilical hernia pain, onset several days ago. On 11/19/17, 1 month ago, he was seen in this emergency department for similar symptoms. He had an umbilical hernia reduction and was advised to follow up with Dr. Niño, general surgeon. The patient states that he followed up with Dr. Niño, but was unable to contact him today as Dr. Niño is on vacation. Several days ago the hernia increased in size and became painful again. This pain increases while having a bowel movement, so he has not eaten in several days as he does not want to have a bowel movement. Today he also began to vomit. Denies headache, chest pain, shortness of breath, urinary complaints, fever, numbness, paresthesias. I reviewed prior medical records including ED visit on 11/19/17. REVIEW OF SYSTEMS: Aside from elements discussed in the HPI, a comprehensive 10-point review of systems was reviewed and is negative. PMH: SC X 2, stents X 2, atrial fibrillation, hypertension, AICD, home O2, COPD , vasectomy, hernia repair, bilateral hip replacements, cardiomyopathy, knee replacement SOCIAL HISTORY: Lives at [facility], , retired PHYSICAL EXAM: General: Patient is vomiting, alert, in no acute distress. ENT: Eyes are normal to inspection. ENT inspection normal. Poor dentition. Neck: Normal inspection. Full range of motion. Respiratory: No respiratory distress. Breath sounds normal bilaterally. Cardiovascular: Regular rate and rhythm. Strong peripheral pulses. Normal cap refill. Abdomen: Umbilical hernia with mild erythema and moderate tenderness. There are no peritoneal signs. Back: Normal to inspection. No tenderness to palpation. Skin: Normal color. No rash. Warm and dry. Extremities: Normal appearance. Full range of motion. Neuro: Oriented x3. Normal motor function. Normal sensory function. ED Course: 1722: I am unable to reduce the umbilical hernia with mild palpation; abdominal x-ray ordered. 1732: I reviewed patient's abdominal x-ray which reveals an obstructive bowel gas pattern in the right upper quadrant; radiologist reading pending. 1733: I reassessed this patient with Dr. Simon, general surgeon, who was unable to reduce this incarcerated umbilical hernia manually. Dr. Simon admit this patient and preform a hernia repair on this patient. Patient is comfortable with plan for surgery and admission. 0.5 mg IV Dilaudid and 1L IV NS administered; labs ordered. 1757: Consulted with hospitalist service, Dr. Zarate will consult on this patient during his admission. 1809: Patient has a hemoglobin of 20.3 - Data Points Imaging Results: Imaging Impressions Abdomen X-Ray 12/12/17 17:16 Impression: Features suggestive of a small bowel obstruction. Imaging: I viewed and interpreted images myself Medications Given: Discontinued Medications Hydromorphone HCl (Dilaudid) 0.5 mg IVP EDNOW ONE Stop: 12/12/17 17:44 Last Admin: 12/12/17 17:48 Dose: 0.5 mg Sodium Chloride (Ns) 1,000 mls @ 0 mls/hr IV EDNOW ONE; Wide Open PRN Reason: Protocol Stop: 12/12/17 18:10 Last Admin: 12/12/17 18:20 Dose: 1,000 mls General Time Seen by Provider: 12/12/17 17:08 Initial Vital Signs: Initial Vital Signs Temperature (C) 36.5 C 12/12/17 17:01 Heart Rate 95 12/12/17 17:01 Respiratory Rate 16 12/12/17 17:01 Blood Pressure 110/74 12/12/17 17:01 O2 Sat (%) 91 L 12/12/17 17:01 O2 Delivery Mode Room Air Allergies/Adverse Reactions: acetaminophen [From Tylenol] Allergy (Unknown, Verified 08/29/15 14:10) RASH/VOMITING blueberry Allergy (Verified 08/29/15 14:10) cefuroxime Allergy (Verified 03/15/17 08:54) doxycycline Allergy (Verified 03/15/17 08:54) lisinopril Allergy (Verified 08/29/15 14:10) Rash raspberry Allergy (Verified 08/29/15 14:10) Tetanus Vaccines and Toxoid [Tetanus Vaccines & Toxoid] Allergy (Verified 14:10) tramadol Allergy (Verified 03/15/17 08:54) BLACKBERRY Allergy (Uncoded 08/29/15 14:10) Home Medications: Medication Instructions Recorded Albuterol [Ventolin Hfa Inhaler] 2 puffs IH Q6 PRN 07/02/17 Apixaban [Eliquis] 5 mg PO BID 07/02/17 Aspirin EC [Aspirin EC 81 mg (*)] 81 mg PO DAILY 07/02/17 Bismuth Subsalicylate [KAOPECTATE] 15 - 30 ml PO Q6 PRN 07/02/17 Cetirizine [ZyrTEC 10 mg (*)] 10 mg PO DAILY PRN 07/02/17 Docusate Sodium [Colace 100 MG (*)] 100 mg PO Q8 PRN 07/02/17 Furosemide [Lasix 40 MG (*)] 40 mg PO BIDDIUR 07/02/17 Losartan Potassium [Cozaar 25 mg 25 mg PO DAILY 07/02/17 (*)] Melatonin [Melatonin 3 MG (*)] 3 mg PO HS PRN 07/02/17 Nitroglycerin [Nitrostat 0.4 mg 0.4 mg SL Q5M PRN 07/02/17 (*)] Spironolactone [Aldactone 25 MG 25 mg PO DAILY 07/02/17 (*)] Tiotropium Inhaler [Spiriva 1 puffs IH DAILY 07/02/17 Inhaler (RX)] Tizanidine HCl 2 mg PO Q8 PRN 07/02/17 Omeprazole 40 mg PO BID 12/12/17 Ondansetron HCl 4 mg PO DAILY PRN 12/12/17 Polyethylene Glycol 3350 [Miralax 17 gm PO DAILY PRN 12/12/17 17 gm (*)] guaiFENesin/DEXTROMETHORPHAN 10 ml PO Q12 PRN 12/12/17 [Robitussin Dm Oral Liquid (*)] oxyCODONE IR [Oxycodone Ir (*)] 5 mg PO Q6 PRN 12/12/17 Departure - Departure Disposition: [facility] Acute Clinical Impression: Umbilical hernia with obstruction, Elevated hemoglobin Vomiting Qualifiers: Vomiting type: unspecified Vomiting Intractability: unspecified Nausea presence : with nausea Qualified Code(s): R11.2 - Nausea with vomiting, unspecified Condition: Fair Report Scribed for: Iain Diallo Report Scribed by: aJja Walters Date of Report: 12/12/17 Time of Report: 17:09 Physician Review and Approval Statement: Portions of this note were transcribed by an ED scribe. I personally performed the history, physical exam, and medical decision making; and confirm the accuracy of the information in the transcribed note.
[2017-12-12] MEDS ORDERED: HYDROmorphONE/DILAUDID 2 MG/ML INJ IVP ONE (17:43)
[2017-12-12] MEDS ORDERED: NS 1,000 ML IV ONE (18:09)
[2017-12-12 18:11] LABS: PLATELET COUNT 200 10^3/uL (150-400)
--- NOTE | 2017-12-12 18:23 | GHP ---
[f rep st] GENERAL HISTORY AND PHYSICAL CHIEF COMPLAINT: Painful mass in the umbilicus. PRESENT ILLNESS: 67-year-old male from [facility] with an incarcerated umbilical hernia, vomiting and x-ray showing small bowel obstruction with dilated small bowel loops. The patient has multiple medical problems including ischemic cardiomyopathy with an ejection fraction in the 20% to 25% range, previous coronary artery disease with stents. He has automatic implantable cardiac defibrillator. 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 Denies current tobacco use. Denies alcohol use. PHYSICAL EXAM: GENERAL: Elderly male complaining of abdominal discomfort. HEENT: Within normal limits. LUNGS: Clear, No wheezes. HEART: Irregular rate consistent with atrial fibrillation, no murmur. ABDOMEN: Mildly distended. Incarcerated mass in the umbilicus. I attempted to reduce this, but could not. EXTREMITIES: Unremarkable. No swelling. ASSESS: Incarcerated umbilical hernia. Unfortunately, the patient is anticoagulated, but given the non-reducible nature and x-ray, we should go to surgery tonight. Thankfully this is not deep intestinal surgery and any bleeding will likely just result in bruising of the abdominal wall. Risks and benefits of an emergent hernia repair were explained to the patient including potential for infection, bleeding, bruising, and hernia recurrence. He is anxious to proceed because of the severe pain he is having. There are also the anesthetic risks of his low ejection fraction, etc. , which I explained to him. We will have the medicine service consult because of his complex issues. /[id number]/MODL and [id number]/MODL [facility]
[2017-12-12] MEDS ORDERED: BUPIVACAINE/EPI 0.5% 30 ML SDV ONE (19:40)
--- NOTE | 2017-12-12 19:45 | PDANEPAE ---
ANE Past Medical History - Cardiovascular History Hx Hypertension: Yes Hx Arrhythmias: Yes Hx Coronary Artery / Peripheral Vascular Disease: Yes Hx CHF / Valvular Disease: Yes Cardiovascular History Comment: ME X2. STENTS X2. AFIB. DEFIBRILLATOR - Pulmonary History Hx COPD: Yes Hx Asthma/Reactive Airway Disease: No Hx Recent Upper Respiratory Infection: No Hx Oxygen in Use at Home: Yes O2 in Use at Home (L/minute): 2 Hx Sleep Apnea: Yes Pulmonary History Comment: BIANCHI IS [employer] - Neurologic History Hx Cerebrovascular Accident: No Hx Seizures: No Hx Dementia: No - Endocrine History Hx Diabetes: No - Renal History Hx Renal Disorders: No Renal History Comment: DIFFICULTY URINATING CURRENTLY - Liver History Hx Hepatic Disorders: No - Neurological & Psychiatric Hx Hx Neurological and Psychiatric Disorders: No - Cancer History Hx Cancer: No - Congenital Disorder History Hx Congenital Disorders: No - GI History Hx Gastrointestinal Disorders: No - Other Health History Other Health History: NONE - Chronic Pain History Chronic Pain: Yes (Familia legs) - Surgical History Prior Surgeries: HERNIA REPAIR. BILATERAL HIP REPLACEMENTS. CATARACTS BILATERAL 2012. ME X2. STENTS X2. VASECTOMY ANE Review of Systems Review of Systems: - Pacemaker Date Pacemaker Last Checked: 05/22/14 ANE Patient History - Allergies Allergies/Adverse Reactions: acetaminophen [From Tylenol] Allergy (Unknown, Verified 08/29/15 14:10) RASH/VOMITING blueberry Allergy (Verified 08/29/15 14:10) cefuroxime Allergy (Verified 03/15/17 08:54) doxycycline Allergy (Verified 03/15/17 08:54) lisinopril Allergy (Verified 08/29/15 14:10) Rash raspberry Allergy (Verified 08/29/15 14:10) Tetanus Vaccines and Toxoid [Tetanus Vaccines & Toxoid] Allergy (Verified 14:10) tramadol Allergy (Verified 03/15/17 08:54) BLACKBERRY Allergy (Uncoded 08/29/15 14:10) - Home Medications Home Medications: Albuterol [Ventolin Hfa Inhaler] 2 puffs IH Q6 PRN 07/02/17 [Last Taken Unknown] Apixaban [Eliquis] 5 mg PO BID 07/02/17 [Last Taken 07/02/17] Aspirin EC [Aspirin EC 81 mg (*)] 81 mg PO DAILY 07/02/17 [Last Taken 07/02/17] Bismuth Subsalicylate [KAOPECTATE] 15 - 30 ml PO Q6 PRN 07/02/17 [Last Taken Unknown] Cetirizine [ZyrTEC 10 mg (*)] 10 mg PO DAILY PRN 07/02/17 [Last Taken Unknown] Docusate Sodium [Colace 100 MG (*)] 100 mg PO Q8 PRN 07/02/17 [Last Taken Unknown] Furosemide [Lasix 40 MG (*)] 40 mg PO BIDDIUR 07/02/17 [Last Taken 07/02/17] Losartan Potassium [Cozaar 25 mg (*)] 25 mg PO DAILY 07/02/17 [Last Taken ] Melatonin [Melatonin 3 MG (*)] 3 mg PO HS PRN 07/02/17 [Last Taken Unknown] Nitroglycerin [Nitrostat 0.4 mg (*)] 0.4 mg SL Q5M PRN 07/02/17 [Last Taken Unknown] Spironolactone [Aldactone 25 MG (*)] 25 mg PO DAILY 07/02/17 [Last Taken ] Tiotropium Inhaler [Spiriva Inhaler (RX)] 1 puffs IH DAILY 07/02/17 [Last Taken 07/02/17] Tizanidine HCl 2 mg PO Q8 PRN 07/02/17 [Last Taken Unknown] Omeprazole 40 mg PO BID 12/12/17 [Last Taken Unknown] Ondansetron HCl 4 mg PO DAILY PRN 12/12/17 [Last Taken Unknown] Polyethylene Glycol 3350 [Miralax 17 gm (*)] 17 gm PO DAILY PRN 12/12/17 [Last Taken Unknown] guaiFENesin/DEXTROMETHORPHAN [Robitussin Dm Oral Liquid (*)] 10 ml PO Q12 PRN [Last Taken Unknown] oxyCODONE IR [Oxycodone Ir (*)] 5 mg PO Q6 PRN 12/12/17 [Last Taken Unknown] - NPO status NPO Since - Liquids (Date): 12/12/17 NPO Since - Liquids (Time): 17:00 - Smoking Hx Smoking Status: Current every day smoker - Family Anes Hx Family Hx Anesthesia Complications: NONE ANE Labs/Vital Signs - Labs Result Diagrams: 12/12/17 17:44 12/12/17 17:44 - Vital Signs Blood Pressure: 93/78 Heart Rate: 91 Respiratory Rate: 16 O2 Sat (%): 95 Height: 165.1 cm Weight: 58.967 kg ANE Physical Exam - Airway Neck exam: FROM Mallampati Score: Class 3 Mouth exam: poor dentition, dentures - Pulmonary Pulmonary: expiratory wheeze, inspiratory crackles, rhonchi - Cardiovascular Cardiovascular: irregularly irregular - ASA Status ASA Status: IV ANE Anesthesia Plan Anesthesia Plan: general endotracheal anesthesia
[2017-12-12] MEDS ORDERED: CEFAZOLIN 2 GM/DEXTROSE/100 ML BAG IV ONE (19:48)
[2017-12-12] MEDS ORDERED: PROPOFOL 200 MG/20 ML VIAL ONE (19:53)
[2017-12-12] MEDS ORDERED: fentaNYL 100 MCG/2 ML INJ ONE ×2 (19:53→20:05)
[2017-12-12] MEDS ORDERED: LIDOCAINE 2% 100 MG/5 ML SYR ONE (19:55)
[2017-12-12] MEDS ORDERED: ROCURONIUM 100 MG/10 ML VIAL ONE (19:55)
[2017-12-12] MEDS ORDERED: ceFAZolin 2 GM/DEXTROSE 100 ML IV ONE (20:00)
[2017-12-12] MEDS ORDERED: ePHEDrine SULFATE 25 MG/5 ML SYR ONE (20:27)
[2017-12-12] MEDS ORDERED: fentaNYL 100 MCG/2 ML INJ IVP PRN (20:58)
[2017-12-12] MEDS ORDERED: ALBUTEROL 3 ML DEYVIAL IH PRN (20:58)
[2017-12-12] MEDS ORDERED: ONDANSETRON 4 MG/2 ML VIAL IVP PRN ×2 (20:58→21:07)
[2017-12-12] MEDS ORDERED: NALOXONE HCL 0.4 MG/ML INJ IVP PRN (20:58)
--- NOTE | 2017-12-12 20:59 | POSTANESTH ---
Post Anesthetic Evaluation Cardiovascular Status: Similar to Pre-Op Cond Respiratory Status: Similar to Pre-op Cond. Level of Consciousness/Mental Status: Alert and Oriented Pain Control: Adequate, Prn Tx Ordered Nausea/Vomiting Control: Adequate, Prn Tx Ordered Complications Possibly Related to Anesthesia: None Noted
[2017-12-12] MEDS ORDERED: tiZANidine HCL 2 MG TAB PO PRN (21:05)
[2017-12-12] MEDS ORDERED: POLYETHYLENE GLYCOL 3350 17 GM PKT PO PRN (21:05)
[2017-12-12] MEDS ORDERED: BISMUTH SUBSALICYLATE 524 MG/30 ML UDL PO PRN (21:05)
[2017-12-12] MEDS ORDERED: ALBUTEROL 60 PUFFS/8 GM MDI IH PRN (21:05)
--- NOTE | 2017-12-12 21:10 | POSTOPPROG ---
Post Op Note Date of Operation: 12/12/17 Surgeon: Alessio Simon Pre-op Diagnosis: incarcerated umbilical hernia Post-op Diagnosis: same Indication: same Procedure: repair incarcerated umbilical hernia Findings: same Inf/Abcess present in the surg proc area at time of surgery?: No EBL: Minimal
--- NOTE | 2017-12-12 21:28 | GOP ---
[f rep st] OPERATIVE REPORT DATE OF OPERATION: SURGEON: Alessio Simon MD ANESTHESIA: General anesthetic. PREOPERATIVE DIAGNOSIS: Incarcerated umbilical hernia. POSTOPERATIVE DIAGNOSIS: Incarcerated umbilical hernia. PROCEDURE PERFORMED: Repair of incarcerated umbilical hernia. FINDINGS: INDICATIONS: The patient is a 67-year-old male with multiple medical problems including the use of E liquis, implantable defibrillator, low ejection fraction, etc., who unfortunately presents with incar cerated mass in the umbilicus, quite painful, small-bowel obstruction documented on abdominal x-ray, vomiting for the last week. I explained the potential for infection, bleeding, bruising, anesthetic issues, etc., with emergency hernia repair, and he wishes to proceed. DESCRIPTION OF PROCEDURE: The abdomen scrubbed with ChloraPrep, draped in the usual sterile fashion. A curved incision made below the umbilicus and using cautery as much as possible, the umbilical ski n was lifted off the underlying hernia sac, which was freed up and reduced into the abdomen. The fas cial edges were then closed with a row of interrupted 0 Nurolon sutures, closing the defect transvers serge. The skin and subcutaneous tissue were reapproximated to eliminate space with multiple inte rrupted 3-0 Vicryl sutures, and then the skin closed with running subcuticular Vicryl and Dermabond. /[id number]/MODL
[2017-12-12] MEDS ORDERED: NICOTINE 21 MG/24 HR PATCH TD ONE (22:48)
--- NOTE | 2017-12-12 23:21 | PDGENHP ---
History and Physical - Chief Complaint Abdominal pain - History of Present Illness 67 yo M w/ hx of CAD, AF, ICM last EF 10-15%, and COPD presents with abdominal pain. Patient presented to ED with complaints around an umbilical hernia. The pain was deemed to be incarcerated so he proceeded to the OR with Dr. Simon. The procedure was uncomplicated and I evaluated the patient in the post-operative setting. At the time of my evaluation states he feels well and denies complaints. He is hemodynamically stable with a V-paced rhythm in the 70' s and requiring 4 L/min O2 via NC to maintain O2 sats in the mid 90's. He tells me he lives at [facility] and is compliant with his medication. He takes losartan, furosemide, and spironolactone for his history of severe ischemic cardiomyopathy. He still smokes 1 pack per day, however. He does not use supplemental O2 at baseline. He states his doctor told him he did not need it anymore. He takes apixaban for atrial fibrillation. Case discussed with Dr. Zarate, previous records reviewed including latest TTE report (03/30) and latest cardiology clinic visit with Dr. Hussein on 11/18/17. History Information - Allergies/Home Medication List Allergies/Adverse Reactions: acetaminophen [From Tylenol] Allergy (Unknown, Verified 08/29/15 14:10) RASH/VOMITING blueberry Allergy (Verified 08/29/15 14:10) cefuroxime Allergy (Verified 03/15/17 08:54) doxycycline Allergy (Verified 03/15/17 08:54) lisinopril Allergy (Verified 08/29/15 14:10) Rash raspberry Allergy (Verified 08/29/15 14:10) Tetanus Vaccines and Toxoid [Tetanus Vaccines & Toxoid] Allergy (Verified 14:10) tramadol Allergy (Verified 03/15/17 08:54) BLACKBERRY Allergy (Uncoded 08/29/15 14:10) Home Medications: Albuterol [Ventolin Hfa Inhaler] 2 puffs IH Q6 PRN 07/02/17 [Last Taken Unknown] Apixaban [Eliquis] 5 mg PO BID 07/02/17 [Last Taken 07/02/17] Aspirin EC [Aspirin EC 81 mg (*)] 81 mg PO DAILY 07/02/17 [Last Taken 07/02/17] Bismuth Subsalicylate [KAOPECTATE] 15 - 30 ml PO Q6 PRN 07/02/17 [Last Taken Unknown] Cetirizine [ZyrTEC 10 mg (*)] 10 mg PO DAILY PRN 07/02/17 [Last Taken Unknown] Docusate Sodium [Colace 100 MG (*)] 100 mg PO Q8 PRN 07/02/17 [Last Taken Unknown] Furosemide [Lasix 40 MG (*)] 40 mg PO BIDDIUR 07/02/17 [Last Taken 07/02/17] Losartan Potassium [Cozaar 25 mg (*)] 25 mg PO DAILY 07/02/17 [Last Taken ] Melatonin [Melatonin 3 MG (*)] 3 mg PO HS PRN 07/02/17 [Last Taken Unknown] Nitroglycerin [Nitrostat 0.4 mg (*)] 0.4 mg SL Q5M PRN 07/02/17 [Last Taken Unknown] Spironolactone [Aldactone 25 MG (*)] 25 mg PO DAILY 07/02/17 [Last Taken ] Tiotropium Inhaler [Spiriva Inhaler (RX)] 1 puffs IH DAILY 07/02/17 [Last Taken 07/02/17] Tizanidine HCl 2 mg PO Q8 PRN 07/02/17 [Last Taken Unknown] Omeprazole 40 mg PO BID 12/12/17 [Last Taken Unknown] Ondansetron HCl 4 mg PO DAILY PRN 12/12/17 [Last Taken Unknown] Polyethylene Glycol 3350 [Miralax 17 gm (*)] 17 gm PO DAILY PRN 12/12/17 [Last Taken Unknown] guaiFENesin/DEXTROMETHORPHAN [Robitussin Dm Oral Liquid (*)] 10 ml PO Q12 PRN [Last Taken Unknown] oxyCODONE IR [Oxycodone Ir (*)] 5 mg PO Q6 PRN 12/12/17 [Last Taken Unknown] I have personally reviewed and updated: family history, medical history - Past Medical History atrial fibrillation, coronary artery disease, CHF, COPD - Surgical History Reports: hernia repair, pacemaker/AICD, coronary stent Additional surgical history: Hip replacement. Knee replacement - Family History Additional family history: Asked, denies - Social History Smoking Status: Current every day smoker Review of Systems Review of Systems: ROS: 10pt was reviewed & negative except for what was stated in HPI & below Physical Exam Physical Exam: Temp Pulse Resp BP Pulse Ox 36.6 C 77 16 94/64 L 95 12/12/17 21:59 12/12/17 21:59 12/12/17 21:59 12/12/17 21:59 12/12/17 21:59 O2 (L/minute) 5 Constitutional: no apparent distress, not in pain Eyes: PERRL, EOMI Ears, Nose, Mouth, Throat: moist mucous membranes, no oral mucosal ulcers Cardiovascular: regular rate and rhythym, no murmur, rub, or gallop Respiratory: no respiratory distress, clear to auscultation Gastrointestinal: other (Surgical incision in umbilical region, well-healing), No guarding, No rebound, No distension Skin: warm, normal color Musculoskeletal: full muscle strength, no muscle tenderness Neurologic: AAOx3, CN II-XII Intact Psychiatric: interacting appropriately, not anxious Lab Data & Imaging Review 12/12/17 17:44 12/12/17 17:44 WBC 14.56 10^3/uL (3.80-9.50) H 12/12/17 17:44 RBC 6.45 10^6/uL (4.40-6.38) H 12/12/17 17:44 Hgb 20.3 g/dL (13.7-17.5) H* 12/12/17 17:44 Hct 58.4 % (40.0-51.0) H 12/12/17 17:44 MCV 90.5 fL (81.5-99.8) 12/12/17 17:44 MCH 31.5 pg (27.9-34.1) 12/12/17 17:44 MCHC 34.8 g/dL (32.4-36.7) 12/12/17 17:44 RDW 14.0 % (11.5-15.2) 12/12/17 17:44 Plt Count 200 10^3/uL (150-400) 12/12/17 17:44 MPV 11.0 fL (8.7-11.7) 12/12/17 17:44 Neut % (Auto) Not Reported 12/12/17 17:44 Lymph % (Auto) Not Reported 12/12/17 17:44 [place] % (Auto) Not Reported 12/12/17 17:44 Eos % (Auto) Not Reported 12/12/17 17:44 Baso % (Auto) Not Reported 12/12/17 17:44 Nucleat RBC Rel Count Not Reported 12/12/17 17:44 Absolute Neuts (auto) Not Reported 12/12/17 17:44 Absolute Lymphs (auto) Not Reported 12/12/17 17:44 Absolute Monos (auto) Not Reported 12/12/17 17:44 Absolute Eos (auto) Not Reported 12/12/17 17:44 Absolute Basos (auto) Not Reported 12/12/17 17:44 Absolute Nucleated RBC Not Reported 12/12/17 17:44 Immature Gran % Not Reported 12/12/17 17:44 Seg Neutrophils % 0 % 12/12/17 17:44 Band Neutrophils % 0 % 12/12/17 17:44 Lymphocytes % 0 % 12/12/17 17:44 Monocytes % 0 % 12/12/17 17:44 Eosinophils % 0 % 12/12/17 17:44 Basophils % 0 % 12/12/17 17:44 Metamyelocytes % 0 % 12/12/17 17:44 Myelocytes % 0 % 12/12/17 17:44 Promyelocytes % 0 % 12/12/17 17:44 Blast Cells % 0 % 12/12/17 17:44 Immature Gran # Not Reported 12/12/17 17:44 Absolute Seg Neuts 0.00 10^/uL (1.70-6.50) L 12/12/17 17:44 Absolute Band Neuts 0.00 10^3/uL (0.00-0.70) 12/12/17 17:44 Absolute Lymphocytes 0.00 10^3/uL (1.00-3.00) L 12/12/17 17:44 Absolute Monocytes 0.00 10^3/uL (0.30-0.80) L 12/12/17 17:44 Absolute Eosinophils 0.00 10^3/uL (0.03-0.40) L 12/12/17 17:44 Absolute Basophils 0.00 10^3/uL (0.02-0.10) L 12/12/17 17:44 Absolute Metamyelocyte 0.00 10^3/mL (0.00-0.00) 12/12/17 17:44 Absolute Myelocytes 0.00 10^3/mL (0.00-0.00) 12/12/17 17:44 Absolute Promyelocytes 0.00 10^3/uL (0.00-0.00) 12/12/17 17:44 Absolute Plasma Cells 0.00 10^3/uL (0.00-0.00) 12/12/17 17:44 RBC/WBC/PLT Morphology NORMAL (NORMAL) 12/12/17 17:44 Absolute Blast Cells 0.00 10^3/uL (0.00-0.00) 12/12/17 17:44 Plasma Cells % 0 % 12/12/17 17:44 Platelet Estimate ADEQUATE (ADEQ) 12/12/17 17:44 Sodium 132 mEq/L (135-145) L 12/12/17 17:44 Potassium 3.9 mEq/L (3.3-5.0) 12/12/17 17:44 Chloride 93 mEq/L (97-110) L 12/12/17 17:44 Carbon Dioxide 26 mEq/l (22-31) 12/12/17 17:44 Anion Gap 13 mEq/L (8-16) 12/12/17 17:44 BUN 50 mg/dL (7-23) H 12/12/17 17:44 Creatinine 1.3 mg/dL (0.7-1.3) 12/12/17 17:44 Estimated GFR 55 12/12/17 17:44 Glucose 119 mg/dL (70-100) H 12/12/17 17:44 Calcium 9.5 mg/dL (8.5-10.4) 12/12/17 17:44 Imaging Review: Imaging Impressions Abdomen X-Ray 12/12/17 17:16 Impression: Features suggestive of a small bowel obstruction. Assessment & Plan Assessment: 67 yo M w/ hx of CAD, AF, ICM last EF 10-15%, and COPD presents with incarcerated hernia now s/p surgical repair. Plan: 1. Incarcerated umbilical hernia - Now s/p surgical repair; patient recovering well. - Management per general surgery primary - Case discussed with Dr. Simon 2. CAD - s/p stents in the past and complicated by ischemic cardiomyopathy. He is compliant with ASA, unclear why not on BB or statin. 3. Ischemic cardiomyopathy - Last EF 10-15% on March 2017 TTE. Patient is s/p AICD and compliant with ASA, ARB, furosemide and spironolactone. He appears very well compensated currently and I suspect his EF has recovered while on medication therapy. - Continue home medication regimen - Daily weights, monitor I/Os 4. AHRF - Currently requiring 4 L/min O2 via NC to maintain O2 sats >90%. I suspect this is due to post-operative atelectasis. It is quite possible he needs O2 at baseline noting polycythemia and ongoing tobacco use (1 PPD). - Incentive spirometry ordered - Wean O2 as able, he may need home O2 at discharge 5. Polycythemia - Hgb >20 on admission, increased from prior value of 17. I suspect this is due to COPD, ongoing smoking (1 PPD), and possibly untreated hypoxia noting he no longer uses home O2. - Monitor CBC - Supplemental O2 to maintain O2 sats >90% 6. AF - On apixaban for anticoagulation. Per BRIDGE trial, no indication to bridge in hailey-operative period. I recommend starting apixaban once surgical service approves. Telemetry shows V-paced rhythm, which is consistent with prior ECGs (personally interpreted). - Monitor on telemetry 7. COPD - Continue home medications; he continues to smoke 1 PPD. - Counseled tobacco cessation - Nicotine patch ordered Diet - Per surgery primary, would recommend cardiac Code - Full Thank you for this consult, the hospital medicine service will follow along with you. Please do not hesitate to contact us with any questions.
[2017-12-13] MEDS: ONDANSETRON DISINTEGRATING 4 MG TAB PO PRN ×3 (00:27→10:25)
--- NOTE | 2017-12-13 06:49 | SOAPPROG ---
SOAP Progress Note Assessment/Plan: Assessment: Plan: Subjective: vss, af abd soft, no echymosis. ok to dc home if marylin with medicine service- follow up [address] brannon. Objective: Vital Signs Temp Pulse Resp BP Pulse Ox 36.8 C 84 16 101/61 94 12/13/17 04:03 12/13/17 04:03 12/13/17 04:03 12/13/17 04:03 12/13/17 04:03 Laboratory Results 12/13/17 03:59 12/13/17 03:59 12/12/17 12/13/17 12/14/17 05:59 05:59 05:59 Intake Total 1325 Output Total 304 Balance 1021 ICD10 Worksheet Patient Problems: Problems Problem Status Onset Elevated hemoglobin Acute Umbilical hernia with obstruction Acute Vomiting Acute Atrial fib/flutter, transient Acute Benign localized hyperplasia of prostate with urinary retention Acute CAD (coronary artery disease) Acute Chest pain Acute Chronic Disease Mgmt/Transitional Care Acute Chronic cough Acute Ischemic cardiomyopathy Acute Umbilical hernia Acute
[2017-12-13] MEDS: LOSARTAN POTASSIUM 25 MG TAB PO SCH (07:59)
[2017-12-13] MEDS: FUROSEMIDE 40 MG TAB PO SCH ×2 (08:00→15:15)
[2017-12-13] MEDS: SPIRONOLACTONE 25 MG TAB PO SCH (08:00)
[2017-12-13] MEDS: ASPIRIN EC 81 MG TAB PO SCH (08:00)
[2017-12-13] MEDS: PANTOPRAZOLE SODIUM 40 MG TAB PO SCH (08:00)
--- NOTE | 2017-12-13 08:57 | ASMTLACE ---
DIMITRIS Comorbidities - select Answers: Chronic pulmonary disease all that apply Congestive heart failure Coronary Artery Disease Opioid dependence / Chronic pain Previous myocardial infarction Other Notes: AFib; HTN # of Emergency department Answers: 3-4 visits in the last 6 months Score: 15 Date Signed: 12/13/2017 08:56 AM Electronically Signed By:Wen Romero
--- NOTE | 2017-12-13 09:44 | ASMTCMCOM ---
CM Note CM Note Notes: 12/13/2017 Case Management Note Pt admitted for surgical treatment of an incarcerated hernia. Phone call to Shannan at [facility] to confirm pt resides at [facility]. Faxed updates via all scripts. There are no further case management d/c needs identified. Case Management d/c poc: return to [facility]. Date Signed: 12/13/2017 09:43 AM Electronically Signed By:Dimple Hayes RN
[2017-12-13] MEDS ORDERED: HYDROmorphONE/DILAUDID 1 MG/ML INJ IVP PRN (10:00)
[2017-12-13] MEDS ORDERED: PROMETHAZINE HCL 25 MG/ML INJ IVP PRN (10:04)
[2017-12-13] MEDS: TIOTROPIUM INHALER 18 MCG/DOSE 5 DOSE/MDI IH SCH (10:11)
[2017-12-13] MEDS: oxyCODONE IR 5 MG TAB PO PRN ×4 (10:23→21:25)
[2017-12-13] MEDS: NICOTINE 21 MG/24 HR PATCH TD SCH (10:23)
--- NOTE | 2017-12-13 14:55 | HOSPPROG ---
Hospitalist Progress Note Assessment/Plan: 67 yo M w/ hx of CAD, AF, ICM last EF 10-15%, and COPD presents with incarcerated hernia now s/p surgical repair. Plan: 1. Incarcerated umbilical hernia - Now s/p surgical repair; patient recovering well. - Management per general surgery primary 2. CAD - s/p stents in the past and complicated by ischemic cardiomyopathy. He is compliant with ASA, unclear why not on BB or statin. Will have him f/u with cardiology after discharge. 3. Ischemic cardiomyopathy - Last EF 10-15% on March 2017 TTE. Patient is s/p AICD and compliant with ASA, ARB, furosemide and spironolactone. He appears very well compensated currently and I suspect his EF has recovered while on medication therapy. - Continue home medication regimen - Daily weights, monitor I/Os 4. AHRF - Currently requiring 4 L/min O2 via NC to maintain O2 sats >90%. I suspect this is due to post-operative atelectasis. It is quite possible he needs O2 at baseline noting polycythemia and ongoing tobacco use (1 PPD). - Incentive spirometry ordered - Wean O2 as able, he may need home O2 at discharge 5. Polycythemia - Hgb >20 on admission, increased from prior value of 17. I suspect this is due to COPD, ongoing smoking (1 PPD), and possibly untreated hypoxia noting he no longer uses home O2. - Monitor CBC - Supplemental O2 to maintain O2 sats >90% 6. AF - On apixaban for anticoagulation. Per BRIDGE trial, no indication to bridge in hailey-operative period. I recommend starting apixaban once surgical service approves. Telemetry shows V-paced rhythm, which is consistent with prior ECGs (personally interpreted). - Monitor on telemetry 7. COPD - Continue home medications; he continues to smoke 1 PPD. - Counseled tobacco cessation - Nicotine patch ordered Diet - Per surgery primary, would recommend cardiac Code - Full Subjective: no significant overnight events, having increased pain that is not controlled with morphine Objective: Vital Signs Temp Pulse Resp BP Pulse Ox 36.8 C 84 14 99/66 L 90 L 12/13/17 11:57 12/13/17 11:57 12/13/17 11:57 12/13/17 11:57 12/13/17 11:57 Laboratory Results 07/02/18 03:59 12/13/17 03:59 12/12/17 12/13/17 12/14/17 05:59 05:59 05:59 Intake Total 1325 Output Total 304 450 Balance 1021 -450 awake alert anicteric op clear rrr no mrg cta b soft ttp diffusely umbilical hernia no cce warm dry well perfused oriented appropriate - Time Spent With Patient Time Spent with Patient: greater than 35 minutes Time Spent with Patient: Greater than 35 minutes spent on this patients care, greater than 50% of time spent counseling, educating, and coordinating care regarding the above mentioned plan. ICD10 Worksheet Patient Problems: Problems Problem Status Onset CAD (coronary artery disease) Acute Ischemic cardiomyopathy Acute Atrial fib/flutter, transient Acute Chronic Disease Mgmt/Transitional Care Acute Benign localized hyperplasia of prostate with urinary retention Acute Umbilical hernia Acute Chronic cough Acute Chest pain Acute Umbilical hernia with obstruction Acute Vomiting Acute Elevated hemoglobin Acute
[2017-12-13] MEDS ORDERED: MELATONIN 3 MG TAB PO PRN (22:18)
[2017-12-14] MEDS: GUAIFENESIN/DM 10 ML UDCUP PO PRN ×2 (06:42→15:25)
[2017-12-14] MEDS: ONDANSETRON DISINTEGRATING 4 MG TAB PO PRN (08:48)
[2017-12-14] MEDS: NICOTINE 21 MG/24 HR PATCH TD SCH (08:50)
[2017-12-14] MEDS ORDERED: LACTULOSE 20 GM/30 ML UDCUP PO PRN (09:26)
[2017-12-14] MEDS ORDERED: POLYETHYLENE GLYCOL 3350 17 GM PKT PO PRN (09:26)
[2017-12-14] MEDS ORDERED: MAGNESIUM HYDROXIDE 30 ML UDCUP PO PRN (09:26)
[2017-12-14] MEDS ORDERED: BISACODYL 10 MG SUPP PR PRN (09:26)
[2017-12-14] MEDS ORDERED: SENNOSIDES/DOCUSATE SODIUM TAB PO SCH (09:30)
[2017-12-14] MEDS: TIOTROPIUM INHALER 18 MCG/DOSE 5 DOSE/MDI IH SCH (09:33)
--- NOTE | 2017-12-14 09:33 | HOSPPROG ---
Hospitalist Progress Note Assessment/Plan: 67 yo M w/ hx of CAD, AF, ICM last EF 10-15%, and COPD presents with incarcerated hernia now s/p surgical repair. Plan: # Incarcerated umbilical hernia - Now s/p surgical repair; patient recovering well. - patient tolerating diet though still with fair amount of pain. Eager to dc home # acute hypoxic respiratory failure: has continued to require 4L to maintain o2 sats in 90s, he does not require O2 at night. Suspect some of this is more chronic given polycythemia/tobacco use. He will need to dc with supplemental o2. # CAD - s/p stents in the past and complicated by ischemic cardiomyopathy. He is compliant with ASA, unclear why not on BB or statin. Will have him f/u with cardiology after discharge. # Ischemic cardiomyopathy - Last EF 10-15% on March 2017 TTE. Patient is s/p AICD and compliant with ASA, ARB, furosemide and spironolactone. He appears very well compensated currently and I suspect his EF has recovered while on medication therapy. - Continue home medication regimen -f/u with cardiology # Polycythemia - Hgb >20 on admission, increased from prior value of 17. I suspect this is due to COPD, ongoing smoking (1 PPD), and possibly untreated hypoxia noting he no longer uses home O2. - Monitor CBC - Supplemental O2 to maintain O2 sats >90% # AF - On apixaban for anticoagulation. Per BRIDGE trial, no indication to bridge in hailey-operative period. I recommend starting apixaban once surgical service approves. Telemetry shows V-paced rhythm, which is consistent with prior ECGs (personally interpreted). - Monitor on telemetry # COPD - Continue home medications; he continues to smoke 1 PPD. Continue tiotroprium/albuterol - Counseled tobacco cessation - Nicotine patch ordered Diet - Per surgery primary, would recommend cardiac Code - Full Subjective: patient continues to feel better today, states his pain is fairly well controlled, denies sob but is requiring o2, has increased sputum production Objective: Vital Signs Temp Pulse Resp BP Pulse Ox 36.6 C 83 18 108/90 H 93 12/14/17 07:45 12/14/17 07:45 12/14/17 07:45 12/14/17 07:45 12/14/17 07:45 Laboratory Results 12/13/17 03:59 12/13/17 03:59 12/13/17 12/14/17 12/15/17 05:59 05:59 05:59 Intake Total 1325 1630 360 Output Total 304 1335 300 Balance 1021 295 60 awake alert anicteric op clear rrr no mrg cta b soft ttp diffusely umbilical hernia no cce warm dry well perfused oriented appropriate ICD10 Worksheet Patient Problems: Problems Problem Status Onset Elevated hemoglobin Acute Umbilical hernia with obstruction Acute Vomiting Acute Atrial fib/flutter, transient Acute Benign localized hyperplasia of prostate with urinary retention Acute CAD (coronary artery disease) Acute Chest pain Acute Chronic Disease Mgmt/Transitional Care Acute Chronic cough Acute Ischemic cardiomyopathy Acute Umbilical hernia Acute
--- NOTE | 2017-12-14 09:34 | PDHOMEO2F ---
Home Oxygen Face to Face Home Orders: I certify that a physician or a nurse practitioner or physician's assistant plant manager has had a [id number] encounter with this patient on the date of this order due to the diagnosis listed, which relates to the primary reason the patient requires home oxygen. Alternative treatments have been tried, or considered, and deemed ineffective. It is anticipated that supplemental oxygen will result in improvement with treatment. Home oxygen qualifying diagnosis: copd Home oxygen secondary diagnosis: chf SpO2 on room air (%): 79 Frequency of home oxygen needed: continuous Home oxygen liters per minute: 4 Home oxygen delivery device: nasal cannula Concentrator: Yes E-tanks for mobility and back up: Yes If ordering portable O2, is the patient mobile in the home?: Yes I certify that, based on these findings, the home oxygen is medically necessary for this patient for the following length of time. Length of time home oxygen needed: 3 months
[2017-12-14] MEDS: PANTOPRAZOLE SODIUM 40 MG TAB PO SCH (10:44)
[2017-12-14] MEDS: oxyCODONE IR 5 MG TAB PO PRN ×2 (10:44→15:25)
[2017-12-14] MEDS: ASPIRIN EC 81 MG TAB PO SCH (10:45)
[2017-12-14] MEDS: FUROSEMIDE 40 MG TAB PO SCH (10:45)
[2017-12-14] MEDS: LOSARTAN POTASSIUM 25 MG TAB PO SCH (10:45)
[2017-12-14] MEDS: SPIRONOLACTONE 25 MG TAB PO SCH (10:45)
[2017-12-14 12:15] VITALS: BP 114/82
--- NOTE | 2017-12-14 14:06 | GDS ---
[f rep st] DISCHARGE SUMMARY PRESENT ILLNESS: Patient was admitted with an incarcerated umbilical hernia, somewhat complicated by his multiple medical problems and being on Eliquis. Because it was incarcerated, he was taken to [facility] operating room and a hernia repair done. No mesh was used. Postoperatively, he is tolerating a di et. His Eliquis is to be restarted tonight. FINAL DIAGNOSIS: Incarcerated umbilical hernia, operation as above. DISPOSITION: Back to his custodial. FOLLOWUP: Follow up with Dr. Simon in 1-2 weeks. /[id number]/MODL
--- NOTE | 2017-12-14 15:22 | PDIAF ---
- Diagnosis Code Status: Full Code - Medication Management Discharge Medications: Medications to Continue on Transfer Albuterol [Ventolin Hfa Inhaler] 2 puffs IH Q6 PRN 07/02/17 [Last Taken Unknown] Apixaban [Eliquis] 5 mg PO BID 07/02/17 [Last Taken 07/02/17] Aspirin EC [Aspirin EC 81 mg (*)] 81 mg PO DAILY 07/02/17 [Last Taken 07/02/17] Bismuth Subsalicylate [KAOPECTATE] 15 - 30 ml PO Q6 PRN 07/02/17 [Last Taken Unknown] Cetirizine [ZyrTEC 10 mg (*)] 10 mg PO DAILY PRN 07/02/17 [Last Taken Unknown] Docusate Sodium [Colace 100 MG (*)] 100 mg PO Q8 PRN 07/02/17 [Last Taken Unknown] Furosemide [Lasix 40 MG (*)] 40 mg PO BIDDIUR 07/02/17 [Last Taken 07/02/17] Losartan Potassium [Cozaar 25 mg (*)] 25 mg PO DAILY 07/02/17 [Last Taken ] Melatonin [Melatonin 3 MG (*)] 3 mg PO HS PRN 07/02/17 [Last Taken Unknown] Nitroglycerin [Nitrostat 0.4 mg (*)] 0.4 mg SL Q5M PRN 07/02/17 [Last Taken Unknown] Spironolactone [Aldactone 25 MG (*)] 25 mg PO DAILY 07/02/17 [Last Taken ] Tiotropium Inhaler [Spiriva Inhaler (RX)] 1 puffs IH DAILY 07/02/17 [Last Taken 07/02/17] Tizanidine HCl 2 mg PO Q8 PRN 07/02/17 [Last Taken Unknown] Omeprazole 40 mg PO BID 12/12/17 [Last Taken Unknown] Ondansetron HCl 4 mg PO DAILY PRN 12/12/17 [Last Taken Unknown] guaiFENesin/DEXTROMETHORPHAN [Robitussin Dm Oral Liquid (*)] 10 ml PO Q12 PRN [Last Taken Unknown] oxyCODONE IR [Oxycodone Ir (*)] 5 mg PO Q6 PRN 12/12/17 [Last Taken Unknown] Melatonin [Melatonin 3 MG (*)] 3 mg PO HS PRN tab 12/14/17 [Last Taken Unknown] Polyethylene Glycol 3350 [Miralax 17 gm (*)] 17 gm PO DAILY PRN pkt 12/14/17 [ Last Taken Unknown] Sennosides/Docusate Sodium [Senokot-S] 1 - 2 tab PO BID tab 12/14/17 [Last Taken Unknown] Discharge Medications: Refer to the Discharge Home Medication list for PRN reason. - Orders Services needed: Registered Nurse, Certified Maintenance Mechanic Engine, Physical Therapy, Occupational Therapy Isolation Type: None Diet Recommendation: no restrictions on diet Diet Texture: Regular Texture Diet - Follow Up Care Current Providers and Referrals: Alessio Simon MD [Medical Doctor] - follow up in 1 week NONE *PRIMARY CARE P,. [Primary Care Provider] - As per Instructions
--- NOTE | 2017-12-14 15:46 | ASMTDCNOTE ---
Case Management Discharge Discharge Order Complete? Answers: Yes Patient to Obtain Answers: Other Notes: [facility] Medications Transportation Arranged Answers: [facility] W/C Transport will Pick (Date 12/14/2017 03:30 PM & Time) Discharge Comments Notes: Pr returned to [facility] following his D/C. Date Signed: 12/14/2017 03:46 PM Electronically Signed By:Janene Samano
[2017-12-14] MEDS ORDERED: APIXABAN 5 MG TAB PO SCH (21:00)
--- NOTE | 2017-12-16 16:27 | ASDISCHSUM ---
Discharge Information Plan Status:SNF Medically Cleared to Leave: Discharge Date:12/14/2017 03:26 PM CM D/C [facility] ADT D/C Disposition:[facility] Projected Discharge Date:12/13/2017 11:00 AM Transportation at D/C:ALS/BLS Discharge Delay Reason: Follow-Up Date:12/13/2017 11:00 AM Discharge Slot: Final Diagnosis: Placement Information Referral Type:*Long-Term/SNF Referral ID:[id number] Provider Name:Florinda Del Cid/LAURO Ribeiro Address 1:[address] Phone Number: Address 2: Fax Number: [facility]:[place] Selection Factors: State:[place] Patient Contact Information Contact Name:ROULA Relationship:Other Address: Work Phone: [facility]:[place] Alternate Phone: [facility] Code:[place] Email: Financial Information Financial Class:Medicare Advantage Plans Primary Plan Desc:[facility] [employer] Primary Plan Number:[id number] Secondary Plan Desc:[employer] [place] Secondary Plan Number:[id number] Assessment Information LACE LACE Comorbidities - select Answers: Chronic pulmonary disease all that apply Congestive heart failure Coronary Artery Disease Opioid dependence / Chronic pain Previous myocardial infarction Other Notes: AFib; HTN # of Emergency department Answers: 3-4 visits in the last 6 months Score: 15 Date Signed: 12/13/2017 08:56 AM Electronically Signed By:Wen Romero [facility] CM Progress Note CM Note CM Note Notes: 12/13/2017 Case Management Note Pt admitted for surgical treatment of an incarcerated hernia. Phone call to Shannan at [facility] to confirm pt resides at [facility]. Faxed updates via all scripts. There are no further case management d/c needs identified. Case Management d/c poc: return to [facility]. Date Signed: 12/13/2017 09:43 AM Electronically Signed By:Dimple Hayes RN Case Management Discharge Plan Note Case Management Discharge Discharge Order Complete? Answers: Yes Patient to Obtain Answers: Other Notes: [facility] Medications Transportation Arranged Answers: [facility] Transport will Pick (Date 12/14/2017 03:30 PM & Time) Discharge Comments Notes: Pr returned to [facility] following his D/C. Date Signed: 12/14/2017 03:46 PM Electronically Signed By:Janene Samano Intervention Information
== END 2017-12-14 15:26 ==
LOC: EDUNIT# → F2W 21:40
PROVIDERS: ADMIT Surgery; ATTEND Surgery
PROC: 0WQF0ZZ Repair Abdominal Wall, Open Approach (ICD-10-PCS; principal; 2017-12-12 19:30)
DX: K42.0 Umbilical hernia with obstruction, without gangrene (principal); J96.01 Acute respiratory failure with hypoxia; D75.1 Secondary polycythemia; E86.9 Volume depletion, unspecified; R11.2 Nausea with vomiting, unspecified; I48.91 Unspecified atrial fibrillation; I25.5 Ischemic cardiomyopathy; J44.9 Chronic obstructive pulmonary disease, unspecified; J84.9 Interstitial pulmonary disease, unspecified; J98.11 Atelectasis; I25.10 Atherosclerotic heart disease of native coronary artery without angina pectoris; F17.210 Nicotine dependence, cigarettes, uncomplicated; I11.0 Hypertensive heart disease with heart failure; I50.9 Heart failure, unspecified; I25.2 Old myocardial infarction; Z79.01 Long term (current) use of anticoagulants; Z99.81 Dependence on supplemental oxygen; Z96.643 Presence of artificial hip joint, bilateral; Z95.5 Presence of coronary angioplasty implant and graft; Z96.659 Presence of unspecified artificial knee joint; Z95.810 Presence of automatic (implantable) cardiac defibrillator
CPT/HCPCS: 49587; 74018; 96361; 96374; 96375; 99285; G0378; J0690; J1170; J2001; J2270; J2550; J2704; J3010